=== PATIENT | male | born 1950 | race Caucasian/White ===

== ENCOUNTER 2020-05-11 06:02 | Day surgery (SDC) | payer MEDICARE, BC ==
[2020-05-10 12:33] LABS: BASOPHILS % (AUTO) 0.3 % (0-1); EOSINOPHILS # (AUTO) 0.1 X10'3 (0-0.9); EOSINOPHILS % (AUTO) 2.6 % (0-6); HEMATOCRIT 45.6 % (42.0-52.0); HEMOGLOBIN 15.5 g/dl (14.0-17.9); LYMPHOCYTES # (AUTO) 1.4 X10'3 (1.1-4.8); LYMPHOCYTES % (AUTO) 25.9 % (21-51); MEAN CORPUSCULAR HEMOGLOBIN 30.8 PG (27.0-31.0); MEAN CORPUSCULAR VOLUME 90.8 FL (78-98); MEAN PLATELET VOLUME 8.5 FL (7.4-10.4); MONOCYTES # (AUTO) 0.5 X10'3 (0-0.9); MONOCYTES % (AUTO) 9.5 % (2-12); NEUTROPHILS # (AUTO) 3.4 X10'3 (1.8-7.7); NEUTROPHILS % (AUTO) 61.7 % (42-75); PLATELET COUNT 214 X10'3 (140-440); RED BLOOD COUNT 5.02 X10'6 (4.70-6.10); RED CELL DISTRIBUTION WIDTH 12.7 % (11.5-14.5); WHITE BLOOD COUNT 5.5 X10'3 (4.5-11.0)
[2020-05-10 12:49] LABS: ALBUMIN 3.9 G/DL (3.4-5.0); ANION GAP 5 (8-16); BLOOD UREA NITROGEN 12 MG/DL (7-18); BUN/CREATININE RATIO 12.2 (5.4-32.0); CALCIUM 9.3 MG/DL (8.5-10.1); CHLORIDE 106 MMOL/L (99-107); CREATININE 0.98 MG/DL (0.60-1.10); GLUCOSE 134 MG/DL (70-104); POTASSIUM 4.2 MMOL/L (3.5-5.1); SODIUM 141 MMOL/L (135-145); TOTAL CARBON DIOXIDE 29.8 MMOL/L (24-32); eGFR 76 ML/MIN
[2020-05-10 13:01] LABS: PARTIAL THROMBOPLASTIN TIME 26 SECONDS (22-32)
[~2020-05-11] VITALS: Ht 180.3 cm; Wt 102.1 kg
[2020-05-11] VITALS (13 sets, daily range): BP systolic 104–148; BP diastolic 64–88
[2020-05-11] MEDS ORDERED: ATOR10TA70 PO (06:30)
[2020-05-11] MEDS ORDERED: METF-950 PO (06:30)
[2020-05-11] MEDS ORDERED: ASPI-529 PO (06:39)
[2020-05-11] MEDS ORDERED: VIT1TABL83 PO (06:39)
[2020-05-11] MEDS ORDERED: CHOL20004 PO (06:39)
[2020-05-11] MEDS ORDERED: MULT-1085 PO (06:39)
[2020-05-11] MEDS ORDERED: LIDOcaine/PRILOcaine 5gm cream TP ONE (06:45)
[2020-05-11] MEDS ORDERED: diphenhydrAMINE 25mg capsule PO PRN (06:45)
[2020-05-11] MEDS ORDERED: LORazepam 0.5 MG tablet PO PRN (06:45)
[2020-05-11] MEDS ORDERED: normal saline 1,000 ML IV SCH (06:45)
[2020-05-11] MEDS ORDERED: verapamil 2.5 mg/ml inj IV ONE (07:21)
[2020-05-11] MEDS ORDERED: nitroGLYCERIN-Tridil 50MG/D5W 250 ML IV ONE (07:21)
[2020-05-11] MEDS ORDERED: LIDOcaine 1% (10mg/ml)w/preservative injection 20ml MDV ONE (07:22)
[2020-05-11] MEDS ORDERED: fentaNYL/PF 50MCG/1 ML 2ML syringe ONE (07:22)
[2020-05-11] MEDS ORDERED: heparin 1,000unit/ml 10ml vial 10 ML ONE (07:22)
[2020-05-11] MEDS ORDERED: midazolam 2 mg/2 ml injection ONE (07:22)
[2020-05-11] MEDS ORDERED: iohexol 350MG/ML 100ml bottle IV ONE ×2 (07:22→08:49)
[2020-05-11] MEDS ORDERED: iohexol 350 MG/ML 50ML vial IV ONE (07:22)
[2020-05-11] MEDS ORDERED: heparin 25,000 UNIT/250ml bag 250 ML IV ONE (08:45)
[2020-05-11] MEDS ORDERED: clopidogrel 300mg tablet ONE (09:15)
[2020-05-11] MEDS ORDERED: normal saline 1,000 ML IV ONE (10:00)
[2020-05-11] MEDS ORDERED: heparin 25,000 UNIT/250ml bag 250 ML IV SCH (10:00)
== END 2020-05-11 17:00 | disposition home or self-care (01) ==
LOC: SSTAY O 06:02
PROVIDERS: ATTEND Internal Medicine Cardiovascular Disease
DX: R94.39 Abnormal result of other cardiovascular function study (principal); I25.10 Atherosclerotic heart disease of native coronary artery without angina pectoris; E11.9 Type 2 diabetes mellitus without complications; J44.9 Chronic obstructive pulmonary disease, unspecified; G47.30 Sleep apnea, unspecified; E78.5 Hyperlipidemia, unspecified; Z87.891 Personal history of nicotine dependence; Z79.01 Long term (current) use of anticoagulants; Z79.899 Other long term (current) drug therapy; Z79.84 Long term (current) use of oral hypoglycemic drugs; Z98.890 Other specified postprocedural states; Z83.3 Family history of diabetes mellitus; Z82.49 Family history of ischemic heart disease and other diseases of the circulatory system
CPT/HCPCS: 36415; 76937; 80048; 85025; 85347; 85610; 85730; 93005; 93458; 99152; 99153; C1725; C1751; C1769; C1874; C1894; C9600; J1644; J2001; J2250; J3010; J7030; Q0163; Q9967; A5120; A6258; A6449; J3490

== ENCOUNTER 2024-03-23 06:18 | Day surgery (SDC) | payer MEDICARE, BC ==
[2024-03-19 10:26] LABS: BASOPHILS % (AUTO) 0.5 % (0-1); EOSINOPHILS # (AUTO) 0.1 X10'3 (0-0.9); EOSINOPHILS % (AUTO) 2.8 % (0-6); LYMPHOCYTES # (AUTO) 1.3 X10'3 (1.1-4.8); LYMPHOCYTES % (AUTO) 24.5 % (21-51); MEAN CORPUSCULAR HEMOGLOBIN 30.1 PG (27.0-31.0); MEAN CORPUSCULAR VOLUME 88.7 FL (78-98); MEAN PLATELET VOLUME 8.6 FL (7.4-10.4); MONOCYTES # (AUTO) 0.5 X10'3 (0-0.9); MONOCYTES % (AUTO) 8.9 % (2-12); NEUTROPHILS # (AUTO) 3.3 X10'3 (1.8-7.7); NEUTROPHILS % (AUTO) 63.3 % (42-75); PRE OP HEMATOCRIT 46.1 % (42.0-52.0); PRE OP HEMOGLOBIN 15.7 g/dL (14.0-17.9); PRE OP PLATELET COUNT 195 X10'3 (140-440); PRE OP WHITE BLOOD COUNT 5.2 10'3 (4.8-10.8); RED BLOOD COUNT 5.19 X10'6 (4.70-6.10); RED CELL DISTRIBUTION WIDTH 14.8 % (11.5-14.5)
[2024-03-19 11:15] LABS: ALBUMIN 3.9 G/DL (3.4-5.0); ALBUMIN/GLOBULIN RATIO 1.2 (1.1-1.5); ALKALINE PHOSPHATASE 68 IU/L (46-116); BLOOD UREA NITROGEN 11 MG/DL (7-18); CALCIUM 9.1 MG/DL (8.5-10.1); CHLORIDE 104 MMOL/L (99-107); CREATININE 0.92 MG/DL (0.60-1.10); PRE OP ALT 38 U/L (30-65); PRE OP ANION GAP 6 (8-16); PRE OP BILIRUB, TOTAL 0.7 MG/DL (0.0-1.0); PRE OP GLUCOSE 173 MG/DL (70-104); PRE OP POTASSIUM 4.6 MMOL/L (3.4-5.1); PRE OP SODIUM 138 MMOL/L (135-145); TOTAL CARBON DIOXIDE 28.5 MMOL/L (24-32); TOTAL PROTEIN 7.1 G/DL (6.4-8.2); eGFR 81 ML/MIN
[2024-03-19 11:29] LABS: PRE OP AST 25 U/L (10-37)
[~2024-03-23] VITALS: Ht 180.3 cm; Wt 101.6 kg
[2024-03-23] MEDS: cefazolin 2gm/D5W 100mL 100 ML IV ONE (05:30)
[~2024-03-23 06:18] MED LIST: ASPI-529 PO; ATOR10TA70 PO; CHOL20004 PO; CLOP75TA34 PO; FLO0.4C PO; FOCUS FACTOR PO; TADA5TAB13 PO
[2024-03-23 06:30] VITALS: BP 126/76; PULSE 59; RESP 16; TEMP 98.1; O2SAT 96
[2024-03-23] MEDS: ringers solution, lacted 1,000 ML IV SCH (08:02)
[2024-03-23] MEDS: famotidine 20mg tablet PO ONE (08:02)
[2024-03-23] MEDS ORDERED: meperidine/PF 25mg/ml syringe IV PRN ×3 (08:35)
[2024-03-23] MEDS ORDERED: proCHLORperazine 10 MG/2 ml inj IV PRN (08:35)
[2024-03-23] MEDS ORDERED: ondansetron/PF 4mg/2ml inj IV PRN (08:35)
[2024-03-23] MEDS ORDERED: morphine 4 MG/ML inj SYRINge IV PRN (08:35)
[2024-03-23] MEDS ORDERED: morphine 2 MG/ML inj. syringe IV PRN (08:35)
[2024-03-23] MEDS ORDERED: ringers solution, lacted 1,000 ML IV SCH (08:35)
[2024-03-23] MEDS ORDERED: midazolam 1 mg/ML 2ml injection ONE (09:07)
[2024-03-23] MEDS ORDERED: fentaNYL/PF 50MCG/1 ML 2ML syringe ONE (09:07)
[2024-03-23] MEDS ORDERED: propofol inj 20 ML IV ONE (09:10)
[2024-03-23 09:27] VITALS: BP 115/71; PULSE 56; RESP 14; O2SAT 95
[2024-03-23 09:40] VITALS: BP 121/71; PULSE 51; RESP 12; O2SAT 96
[2024-03-23 09:50] VITALS: BP 113/73; PULSE 58; RESP 14; O2SAT 97
[2024-03-23 10:00] VITALS: BP 138/83; PULSE 52; RESP 12; O2SAT 95
[2024-03-23 10:10] VITALS: BP 135/71; PULSE 58; RESP 14; O2SAT 97
[2024-03-23] MEDS: BUPIVAcaine/PF 2.5mg/ml (0.25%) 10ml vial ONE (12:16)
[2024-03-23] MEDS: LIDOcaine 2% (20mg/ml) 5ml vial ONE (12:17)
== END 2024-03-23 10:17 | disposition home or self-care (01) ==
LOC: PAS 06:18
PROVIDERS: ATTEND Orthopaedic Surgery Hand Surgery
DX: G56.01 Carpal tunnel syndrome, right upper limb (principal); I49.3 Ventricular premature depolarization; I25.10 Atherosclerotic heart disease of native coronary artery without angina pectoris; E11.9 Type 2 diabetes mellitus without complications; E66.9 Obesity, unspecified; Z87.891 Personal history of nicotine dependence; Z79.02 Long term (current) use of antithrombotics/antiplatelets; Z79.82 Long term (current) use of aspirin; Z79.899 Other long term (current) drug therapy; Z95.5 Presence of coronary angioplasty implant and graft; Z98.890 Other specified postprocedural states; Z68.31 Body mass index [BMI] 31.0-31.9, adult
CPT/HCPCS: 36415; 64721; 80053; 82948; 85025; 93005; A4215; A6449; J0690; J2001; J2250; J2704; J3010; J3490; J7030; J7120; Z7506; Z7512; Z7610

== ENCOUNTER 2024-04-20 06:48 | Day surgery (SDC) | payer MEDICARE, BC ==
[2024-04-15 11:23] LABS: BASOPHILS % (AUTO) 0.5 % (0-1); EOSINOPHILS # (AUTO) 0.1 X10'3 (0-0.9); EOSINOPHILS % (AUTO) 2.1 % (0-6); LYMPHOCYTES # (AUTO) 1.1 X10'3 (1.1-4.8); LYMPHOCYTES % (AUTO) 19.8 % (21-51); MEAN CORPUSCULAR HEMOGLOBIN 30.2 PG (27.0-31.0); MEAN CORPUSCULAR VOLUME 88.6 FL (78-98); MEAN PLATELET VOLUME 8.3 FL (7.4-10.4); MONOCYTES # (AUTO) 0.5 X10'3 (0-0.9); MONOCYTES % (AUTO) 8.9 % (2-12); NEUTROPHILS # (AUTO) 3.6 X10'3 (1.8-7.7); NEUTROPHILS % (AUTO) 68.7 % (42-75); PRE OP HEMATOCRIT 43.7 % (42.0-52.0); PRE OP HEMOGLOBIN 14.9 g/dL (14.0-17.9); PRE OP PLATELET COUNT 204 X10'3 (140-440); PRE OP WHITE BLOOD COUNT 5.3 10'3 (4.8-10.8); RED BLOOD COUNT 4.94 X10'6 (4.70-6.10)
[2024-04-15 11:30] LABS: ALBUMIN 3.8 G/DL (3.4-5.0); ALBUMIN/GLOBULIN RATIO 1.2 (1.1-1.5); ALKALINE PHOSPHATASE 69 IU/L (46-116); BLOOD UREA NITROGEN 11 MG/DL (7-18); BUN/CREATININE RATIO 11.6 (10.0-20.0); CALCIUM 9.1 MG/DL (8.5-10.1); CHLORIDE 102 MMOL/L (99-107); CREATININE 0.95 MG/DL (0.60-1.10); PRE OP ALT 28 U/L (30-65); PRE OP ANION GAP 5 (8-16); PRE OP AST 18 U/L (10-37); PRE OP BILIRUB, TOTAL 0.9 MG/DL (0.0-1.0); PRE OP GLUCOSE 190 MG/DL (70-104); PRE OP POTASSIUM 4.3 MMOL/L (3.4-5.1); PRE OP SODIUM 136 MMOL/L (135-145); TOTAL CARBON DIOXIDE 28.7 MMOL/L (24-32); TOTAL PROTEIN 6.9 G/DL (6.4-8.2); eGFR 78 ML/MIN
[~2024-04-20] VITALS: Ht 180.3 cm; Wt 101.3 kg
[2024-04-20] MEDS: cefazolin 2gm/D5W 100mL 100 ML IV ONE (05:30)
[~2024-04-20 06:48] MED LIST changes: -CHOL20004 PO; -FOCUS FACTOR PO
[2024-04-20 07:06] VITALS: BP 129/70; PULSE 55; RESP 16; TEMP 97.6; O2SAT 96
[2024-04-20] MEDS ORDERED: hydrALAZINE 20mg/ml inj. IV PRN (07:50)
[2024-04-20] MEDS ORDERED: ondansetron/PF 4mg/2ml inj IV PRN (07:50)
[2024-04-20] MEDS ORDERED: morphine 2 MG/ML inj. syringe IV PRN (07:50)
[2024-04-20] MEDS ORDERED: fentaNYL/PF 50MCG/1 ML 2ML syringe IV PRN ×2 (07:50)
[2024-04-20] MEDS ORDERED: ringers solution, lacted 1,000 ML IV SCH (07:50)
[2024-04-20] MEDS ORDERED: morphine 4 MG/ML inj SYRINge IV PRN (07:50)
[2024-04-20] MEDS ORDERED: labetalol 20mg/4ml (5mg/ml) syringe IV PRN (07:50)
[2024-04-20] MEDS: famotidine 20mg tablet PO ONE (08:04)
[2024-04-20] MEDS: ringers solution, lacted 1,000 ML IV SCH (08:06)
[2024-04-20] MEDS ORDERED: midazolam 1 mg/ML 2ml injection ONE (09:16)
[2024-04-20] MEDS ORDERED: fentaNYL/PF 50MCG/1 ML 2ML syringe ONE (09:16)
[2024-04-20] MEDS ORDERED: LIDOcaine 2% (20mg/ml) 5ml vial ONE ×2 (09:17→09:35)
[2024-04-20] MEDS ORDERED: propofol inj 20 ML IV ONE (09:17)
[2024-04-20] MEDS: BUPIVAcaine/PF 5 MG/ML 10ML VIAL SQ ONE (09:30)
[2024-04-20] MEDS ORDERED: BUPIVAcaine/PF 2.5mg/ml (0.25%) 10ml vial ONE (09:33)
[2024-04-20 09:49] VITALS: BP 123/67; PULSE 63; RESP 16; O2SAT 96
[2024-04-20 10:00] VITALS: BP 120/77; PULSE 61; RESP 12; O2SAT 96
[2024-04-20 10:10] VITALS: BP 128/76; PULSE 57; RESP 10; O2SAT 94
[2024-04-20 10:20] VITALS: BP 125/69; PULSE 56; RESP 13; O2SAT 93
[2024-04-20 10:30] VITALS: BP 133/75; PULSE 54; RESP 12; O2SAT 94
== END 2024-04-20 10:39 | disposition home or self-care (01) ==
LOC: PAS 06:48
PROVIDERS: ATTEND Orthopaedic Surgery Hand Surgery
DX: G56.02 Carpal tunnel syndrome, left upper limb (principal); I25.10 Atherosclerotic heart disease of native coronary artery without angina pectoris; E11.9 Type 2 diabetes mellitus without complications; E66.9 Obesity, unspecified; I25.2 Old myocardial infarction; Z87.891 Personal history of nicotine dependence; Z79.02 Long term (current) use of antithrombotics/antiplatelets; Z79.82 Long term (current) use of aspirin; Z79.899 Other long term (current) drug therapy; Z98.890 Other specified postprocedural states; Z68.31 Body mass index [BMI] 31.0-31.9, adult
CPT/HCPCS: 36415; 64721; 80053; 82948; 85025; A4215; A6222; A6449; J0690; J2001; J2250; J2704; J3010; J3490; J7030; J7120; Z7506; Z7512; Z7610; J0665